=== PATIENT | male | born 1945 | race Caucasian/White ===

== ENCOUNTER 2016-04-16 05:36 | Inpatient (IN) | payer OTHER ==
[2016-04-16] MEDS ORDERED: FAMOTIDINE 20 MG TAB PO ONE (06:00)
[2016-04-16] MEDS ORDERED: ACETAMINOPHEN 325 MG TAB PO ONE (06:00)
[2016-04-16] MEDS ORDERED: CEFAZOLIN 2 GM/DEXTR 100 ML IV ONE (06:00)
[2016-04-16] MEDS ORDERED: CHLORHEXIDINE GLUC HIBICLENS 118 ML BTL TP ONE (06:00)
[2016-04-16] MEDS ORDERED: ROPI/epiNEPH/KETOROLAC/morphINE JOINT COCKTAIL IU ONE (06:00)
[2016-04-16] MEDS ORDERED: NS 1,000 ML IV ONE (06:11)
[2016-04-16] MEDS ORDERED: LIDOCAINE 1% 5 ML SDV ID PRN (06:11)
[2016-04-16] MEDS ORDERED: BACITRACIN 50,000 UNITS/10 ML SYR IRR ONE (06:51)
[2016-04-16] MEDS ORDERED: POLYMYXIN B SULFATE 500,000 UNIT/10 ML SYR IRR ONE (06:51)
[2016-04-16] MEDS ORDERED: CITRATE DEXTROSE SOLN 500 ML BAG ONE (06:53)
[2016-04-16] MEDS ORDERED: ONDANSETRON 4 MG/2 ML VIAL IVP PRN (06:54)
[2016-04-16] MEDS ORDERED: BISACODYL 10 MG SUPP PR PRN (06:54)
[2016-04-16] MEDS ORDERED: DIPHENOXYLATE/ATROPINE LOMOTIL 1 TAB PO PRN (06:54)
[2016-04-16] MEDS ORDERED: METOCLOPRAMIDE 10 MG/2 ML VIAL IVP PRN (06:54)
[2016-04-16] MEDS ORDERED: TEMAZEPAM 15 MG CAP PO PRN (06:54)
[2016-04-16] MEDS ORDERED: ONDANSETRON DISINTEGRATING 4 MG TAB PO PRN (06:54)
[2016-04-16] MEDS ORDERED: PROMETHAZINE HCL 25 MG/ML VIAL IVP PRN (06:54)
[2016-04-16] MEDS ORDERED: PHARMACY PAIN CONSULT 1 EA MISC PRN (06:54)
[2016-04-16] MEDS ORDERED: diphenhydrAMINE 25 MG CAP PO PRN (06:54)
[2016-04-16] MEDS ORDERED: PROMETHAZINE HCL 25 MG SUPPR PR PRN (06:54)
[2016-04-16] MEDS ORDERED: MAGNESIUM HYDROXIDE 30 ML UDCUP PO PRN (06:54)
[2016-04-16] MEDS ORDERED: oxyCODONE IR 5 MG TAB PO PRN (06:54)
[2016-04-16] MEDS ORDERED: CYCLOBENZAPRINE 10 MG TAB PO PRN (06:54)
[2016-04-16] MEDS ORDERED: LACTULOSE 20 GM/30 ML UDCUP PO PRN (06:54)
[2016-04-16] MEDS ORDERED: POLYETHYLENE GLYCOL 3350 17 GM PKT PO PRN (06:54)
[2016-04-16] MEDS ORDERED: LR 1,000 ML IV SCH (07:00)
[2016-04-16] MEDS ORDERED: MIDAZOLAM 2 MG/2 ML VIAL ONE (07:10)
[2016-04-16] MEDS ORDERED: PROPOFOL 200 MG/20 ML VIAL ONE ×2 (07:41→08:18)
[2016-04-16] MEDS ORDERED: LIDOCAINE 2% 5 ML SDV ONE (07:42)
[2016-04-16] MEDS ORDERED: epHEDrine SULFATE 10 MG/ML SYR ONE (08:58)
--- NOTE | 2016-04-16 10:16 | DX ---
Portable AP Supine Pelvis April 16, 2016 9:44 a.m. Clinical History: 71-year-old male in the PACU after a right hip arthroplasty. Comparison Study: Right hip, dated November 16, 2015. Findings: The patient has undergone a complete right hip arthroplasty, with anatomic alignment of the femoral and acetabular components. A surgical drain is in place. There are skin adam seen periphe rolaterally along the right hip, and also adjacent to the left iliac crest. There is moderate osteoar thritic change again noted in association with the left hip. There is some subchondral degenerative s clerosis of the symphysis pubis. There are vasectomy clips projected over the scrotum. Impression: 1. Status post right hip arthroplasty, with anatomic alignment. 2. Moderate degenerative osteoarthritic change of the left hip.
[2016-04-16] MEDS: ACETAMINOPHEN 325 MG TAB PO SCH ×3 (12:19→23:05)
[2016-04-16] MEDS: SENNOSIDES/DOCUSATE SODIUM TAB PO SCH ×2 (13:34→19:34)
[2016-04-16] MEDS: ceFAZolin 2 GM/DEXTROSE 100 ML IV SCH ×2 (14:10→21:12)
--- NOTE | 2016-04-16 15:37 | DX ---
Intraoperative Fluoroscopy During Right Hip Arthroplasty Clinical History: 71-year-old male undergoing a total right hip arthroplasty. Findings: Dr. Ty Moya used 5.2 seconds of fluoroscopy time (exposure dose of 1.07 mGy) and a couple of spot matrix intraoperative images were acquired identifying a prosthetic acetabular cup and a temporary femoral intramedullary jig, each of which is anatomically aligned. Impression: Intraoperative fluoroscopy during an ongoing right hip arthroplasty.
[2016-04-16] MEDS: FAMOTIDINE 20 MG TAB PO SCH (19:34)
[2016-04-16] MEDS: ASPIRIN 325 MG TAB PO SCH (19:34)
[2016-04-16 21:21] VITALS: RESP 16
[2016-04-17] MEDS: ACETAMINOPHEN 325 MG TAB PO SCH ×2 (05:04→11:58)
[2016-04-17 05:42] LABS: HEMATOCRIT 40.2 % (40.0-51.0); HEMOGLOBIN 14.2 g/dL (13.7-17.5)
[2016-04-17 07:15] VITALS: BP 144/75; PULSE 62; TEMP 98.1; O2SAT 94
--- NOTE | 2016-04-17 07:15 | SOAPPROG ---
SOAP Progress Note Assessment/Plan: Assessment: right randee Plan: wbat anterior hip precautions ice prn DAILY dressing changes whit hose x 2 weeks may shower without bandage no soaking or immersion f/u at two weeks seek attn for drainage, redness, swelling or discharge 04/17/16 07:14 Subjective: no pain no cp or sobn Objective: Vital Signs Temp Pulse Resp BP Pulse Ox 36.6 C 60 16 106/66 96 04/17/16 04:00 04/17/16 04:00 04/17/16 04:00 04/17/16 04:00 04/17/16 04:00 Laboratory Results 04/17/16 04:34 04/16/16 04/17/16 04/18/16 05:59 05:59 05:59 Intake Total 3985 Output Total 1255 Balance 2730 dressing intact intact pf,df,ehl toes warm and pink sensation intact to light touch neg homans sj xrays stable alignment no fx or lucency ICD10 Worksheet Patient Problems: Problems Problem Status Diagnosed Atrial fibrillation and flutter Active
--- NOTE | 2016-04-17 07:16 | PDIAF ---
- Diagnosis Diagnosis: right randee Code Status: Full Code - Medication Management Discharge Medications: Medications to Continue on Transfer Ibuprofen [Motrin (*)] 400 mg PO Q8 PRN 03/08/16 [Last Taken 1 Week Ago] Naproxen Sodium [Aleve 220 MG (*)] 220 mg PO BID 03/08/16 [Last Taken 1 Week Ago ] oxyCODONE IR [Oxycodone Ir (*)] 5 - 10 mg PO Q3HRS PRN #80 tab 04/17/16 [Last Taken Unknown] Discharge Medications: Refer to the Discharge Home Medication list for PRN reason. - Orders Services needed: Physical Therapy Diet Recommendation: no restrictions on diet Diet Texture: Regular Texture Diet Wound Care Instructions: wbat. anterior hip precautions. ice prn. DAILY dressing changes. whit hose x 2 weeks. may shower without bandage. no soaking or immersion. f/u at two weeks. seek attn for drainage, redness, swelling or discharge - Follow Up Care Current Providers and Referrals: Rogelio Henry MD [Primary Care Provider] -
[2016-04-17] MEDS: SENNOSIDES/DOCUSATE SODIUM TAB PO SCH (08:12)
[2016-04-17] MEDS: FAMOTIDINE 20 MG TAB PO SCH (08:12)
[2016-04-17] MEDS: ASPIRIN 325 MG TAB PO SCH (08:12)
== END 2016-04-17 12:57 | disposition home health service (06) | DRG 470 ==
LOC: F3N 05:36
PROVIDERS: ADMIT Orthopaedic Surgery; ATTEND Orthopaedic Surgery
PROC: 0SR904Z Replacement of Right Hip Joint with Ceramic on Polyethylene Synthetic Substitute, Open Approach (ICD-10-PCS; principal; 2016-04-16 07:15)
DX: M16.11 Unilateral primary osteoarthritis, right hip (principal); G47.33 Obstructive sleep apnea (adult) (pediatric); I10 Essential (primary) hypertension
CPT/HCPCS: 97110-GP; 97116-GP; 97161-GP; 97165-GO; 97530-GP; G8978-GP-CJ; G8979-GP-CI; G8980-GP-CI; G8987-GO-CI; G8988-GO-CI; G8989-GO-CI; J0171; J0690; J1885; J2250; J2704; J2795; J7060

== ENCOUNTER → 2016-05-30 | Outpatient (CLI) | payer OTHER | LOC: BMCIMAGING 10:56 | PROVIDERS: ATTEND Orthopaedic Surgery | DX: Z09 Encounter for follow-up examination after completed treatment for conditions other than malignant neoplasm (principal); Z96.641 Presence of right artificial hip joint ==

== ENCOUNTER → 2016-07-11 | Outpatient (CLI) | payer OTHER | LOC: BMCIMAGING 10:54 | PROVIDERS: ATTEND Orthopaedic Surgery | DX: M22.41 Chondromalacia patellae, right knee (principal); M22.42 Chondromalacia patellae, left knee; M16.12 Unilateral primary osteoarthritis, left hip; Z96.641 Presence of right artificial hip joint ==

== ENCOUNTER → 2018-06-26 | Outpatient (CLI) | payer OTHER | LOC: EMCIMAGING 11:17 | PROVIDERS: ATTEND Internal Medicine | DX: R41.3 Other amnesia (principal); W00.0XXA Fall on same level due to ice and snow, initial encounter | CPT/HCPCS: 70450-PN ==